=== PATIENT | male | born 1960 | race Caucasian/White ===

== ENCOUNTER → 2016-07-15 | Outpatient (CLI) | payer OTHER ==
[~2016-07-15] MED LIST: AMOX1TAB64 PO; CIPR500T87 PO; LOSA1TAB16 PO; METR500T PO; ONDA4TAB7 PO; PANT40TA5 PO; POTA20TA91 PO
== END | disposition home or self-care (01) ==
LOC: CARD 08:49
PROVIDERS: ATTEND Psychiatry & Neurology Neurology
DX: R94.31 Abnormal electrocardiogram [ECG] [EKG] (principal); R06.4 Hyperventilation; G40.209 Localization-related (focal) (partial) symptomatic epilepsy and epileptic syndromes with complex partial seizures, not intractable, without status epilepticus
CPT/HCPCS: 95819

== ENCOUNTER 2017-08-05 19:58 | Emergency (ER) | payer MEDICAID, OTHER ==
[~2017-08-05] VITALS: Ht 175.3 cm; Wt 79.5 kg
[~2017-08-05 19:58] MED LIST changes: -LOSA1TAB16 PO; +LOSA1TAB19 PO
[2017-08-05] MEDS ORDERED: SODIUM CHLORIDE FLUSH 10ML SYR IVF ONE (20:30)
[2017-08-05] MEDS ORDERED: ONDANSETRON 2MG/ML, 2ML IVPush ONE (20:30)
[2017-08-05] MEDS ORDERED: FAMOTIDINE 20 MG/2 ML IVP ONE (20:30)
[2017-08-05] MEDS ORDERED: SODIUM CHLORIDE 0.9% 1,000ML IVBOLUS ONE (20:30)
[2017-08-05] MEDS ORDERED: MAALOX/HYOSCYAMINE/LIDOCAINE 45 ML BTL PO ONE (20:30)
[2017-08-05] MEDS ORDERED: OMEP-110 PO (20:36)
[2017-08-05] MEDS ORDERED: ONDANSETRON 2MG/ML, 2ML ONE (20:39)
[2017-08-05] MEDS ORDERED: MAALOX/HYOSCYAMINE/LIDOCAINE 45 ML BTL ONE (20:39)
[2017-08-05 21:25] LABS: MEAN CORPUSCULAR HEMOGLOBIN 29.3 pg (27.5-34.5); MEAN CORPUSCULAR HGB CONC 33.3 g/dL (33.2-36.2); MEAN CORPUSCULAR VOLUME 88.2 fL (81-97); MEAN PLATELET VOLUME 8.3 fL (7.4-10.4); PLATELET COUNT 319 x10^3/uL (130-400); RED BLOOD COUNT 5.88 x10^6/uL (4.38-5.82); RED CELL DISTRIBUTION WIDTH 12.9 % (9.4-14.8)
[2017-08-05 21:31] LABS: MD YES
[2017-08-05 21:39] LABS: ALANINE AMINOTRANSFERASE 23 U/L (12-78); ALBUMIN 3.5 g/dL (3.4-5.0); ANION GAP 10 mmol/L (5-15); CALCIUM 9.1 mg/dL (8.5-10.1); CHLORIDE 106 mmol/L (98-107); CREATININE 1.13 mg/dL (0.7-1.3)
[2017-08-05 21:40] LABS: TROPONIN I < 0.015 ng/mL (0.000-0.045)
[2017-08-05 21:41] LABS: ALKALINE PHOSPHATASE 71 U/L (45-117); BILIRUBIN,TOTAL 1.3 mg/dL (0.2-1.0); TOTAL PROTEIN 7.8 g/dL (6.4-8.2)
[2017-08-05] MEDS ORDERED: FAMOTIDINE 20 MG TABLET ONE (21:44)
[2017-08-05 21:55] LABS: BAND#(MANUAL) 0.39 x10^3/uL; BANDS%(MANUAL) 1 % (0-7); LYMPH#(MANUAL) 0.78 x10^3/uL (1-3.4); LYMPHS% (MANUAL) 2 % (22-44); MONOS#(MANUAL) 0.39 x10^3/uL (0.3-2.7); MONOS% (MANUAL) 1 % (2-9); SEG#(MANUAL) 37.63 x10^3/uL (1.8-6.8); SEGS% (MANUAL) 96 % (42-75)
[2017-08-05 21:56] LABS: <PLATELET ESTIMATE> ADEQUATE; <PLT MORPHOLOGY> NORMAL PLT MORPH; <RBC MORPHOLOGY> NORMAL
[2017-08-05] MEDS ORDERED: LOSARTAN 50MG TABLET PO ONE (22:00)
[2017-08-05] MEDS ORDERED: PROMETHAZINE 25 MG/ML, 1ML ONE (22:27)
[2017-08-05] MEDS ORDERED: PROMETHAZINE 25 MG/ML, 1ML IM ONE (22:30)
[2017-08-06 01:01] VITALS: BP 121/70
== END 2017-08-06 01:04 | disposition home or self-care (01) ==
LOC: ED 20:26
DX: K29.70 Gastritis, unspecified, without bleeding (principal); I10 Essential (primary) hypertension; R11.2 Nausea with vomiting, unspecified
CPT/HCPCS: 36415; 80053; 83690; 84484; 85025; 93005; 96361; 96372; 96374; 96375; 99285; J2405; J2550; J7030; S0028

== ENCOUNTER → 2017-11-29 | Outpatient (CLI) | payer OTHER ==
[~2017-11-29] MED LIST changes: +GLYCOPYRROLATE 0.4 MG/2 ML, 2ML ONE; +OMEP-110 PO
== END | disposition home or self-care (01) ==
LOC: CARD 08:36
PROVIDERS: ATTEND Psychiatry & Neurology Neurology
DX: G40.209 Localization-related (focal) (partial) symptomatic epilepsy and epileptic syndromes with complex partial seizures, not intractable, without status epilepticus (principal); Z85.841 Personal history of malignant neoplasm of brain
CPT/HCPCS: 95819